=== PATIENT | female | born 1995 | race Caucasian/White ===

== ENCOUNTER → 2019-10-17 11:45 | Outpatient (BNVA) | payer OTHER, SELFPAY | PROVIDERS: Family Provider Family Medicine; PCP Family Medicine; Visit Provider Obstetrics & Gynecology | DX: Z34.90 Encounter for supervision of normal pregnancy, unspecified, unspecified trimester (principal) | CPT/HCPCS: 36415; 80307; 84315; 85027; 86592; 86803; 86850; 86900; 87086; 87340; 87491; 87591 ==

== ENCOUNTER → 2019-11-15 10:19 | Outpatient (BNVA) | payer OTHER, SELFPAY | PROVIDERS: Family Provider Family Medicine; PCP Family Medicine; Visit Provider Nurse Practitioner Women's Health | DX: Z01.89 Encounter for other specified special examinations (principal) | CPT/HCPCS: 84315 ==

== ENCOUNTER → 2019-12-13 09:47 | Outpatient (BNVA) | payer OTHER, SELFPAY | PROVIDERS: Family Provider Family Medicine; PCP Family Medicine; Visit Provider Obstetrics & Gynecology | DX: Z36.87 Encounter for antenatal screening for uncertain dates (principal); Z3A.17 17 weeks gestation of pregnancy | CPT/HCPCS: 76805; 76815 ==

== ENCOUNTER → 2020-01-08 13:06 | Outpatient (BNVA) | payer OTHER, SELFPAY | PROVIDERS: Family Provider Family Medicine; PCP Family Medicine; Visit Provider Obstetrics & Gynecology | DX: Z36.89 Encounter for other specified antenatal screening (principal); Z3A.21 21 weeks gestation of pregnancy | CPT/HCPCS: 76805 ==

== ENCOUNTER → 2020-01-10 08:22 | Outpatient (BNVA) | payer OTHER, SELFPAY | PROVIDERS: Family Provider Family Medicine; PCP Family Medicine; Visit Provider Obstetrics & Gynecology | DX: Z46.89 Encounter for fitting and adjustment of other specified devices (principal) | CPT/HCPCS: 84315 ==

== ENCOUNTER → 2020-01-29 12:54 | Outpatient (BNVA) | payer OTHER, SELFPAY | PROVIDERS: Family Provider Family Medicine; PCP Family Medicine; Visit Provider Obstetrics & Gynecology | DX: O09.892 Supervision of other high risk pregnancies, second trimester (principal) | CPT/HCPCS: 84315 ==

== ENCOUNTER → 2020-02-01 12:38 | Outpatient (BNVA) | payer OTHER, SELFPAY | PROVIDERS: Family Provider Family Medicine; PCP Family Medicine; Visit Provider Obstetrics & Gynecology | DX: Z34.82 Encounter for supervision of other normal pregnancy, second trimester (principal) | CPT/HCPCS: 82950; 85027 ==

== ENCOUNTER → 2020-02-26 14:54 | Outpatient (BNVA) | payer OTHER, SELFPAY | PROVIDERS: Family Provider Family Medicine; PCP Family Medicine; Visit Provider Obstetrics & Gynecology | DX: Z34.82 Encounter for supervision of other normal pregnancy, second trimester (principal) | CPT/HCPCS: 82950; 84315; 85027 ==

== ENCOUNTER → 2020-04-23 09:44 | Outpatient (BNVA) | payer OTHER, SELFPAY | PROVIDERS: Family Provider Family Medicine; PCP Family Medicine; Visit Provider Obstetrics & Gynecology | DX: O35.1XX0 Maternal care for (suspected) chromosomal abnormality in fetus, not applicable or unspecified (principal); Z3A.36 36 weeks gestation of pregnancy | CPT/HCPCS: 84315; 87081 ==

== ENCOUNTER 2020-05-15 05:13 | Inpatient (IN) | payer OTHER, SELFPAY ==
[2020-05-15] VITALS (55 sets, daily range): BP systolic 0–140; BP diastolic 0–95; PULSE 76–107; RESP 16–18; TEMP 36.5–37.3; O2SAT 97–99; BMI 24.6
[2020-05-15 05:59] LABS: Basophils # 0.1 10^3/uL (0.0-0.1); Basophils % 0.5 %; Eosinophils # 0.2 10^3/uL (0.0-0.8); Eosinophils % 1.4 %; Hematocrit 34.9 % (37.0-47.0); Lymphocytes # 2.5 10^3/uL (0.8-4.8); Lymphocytes % 17.8 %; Mean Corpuscular HGB Conc 31.5 g/dL (30.0-36.0); Mean Corpuscular Hemoglobin 27.4 pg (28.0-34.0); Monocytes # 0.9 10^3/uL (0.2-0.9); Monocytes % 6.1 %; Neutrophils # 10.36 10^3/uL (1.8-7.7); Neutrophils % 73.5 %; Nucleated Red Blood Cells % 0 %; Platelet Count 195 10^3/cmm (130-400); Red Blood Count 4.01 10^6/uL (4.1-5.3); Red Cell Distribution Width 13.8 % (12.1-15.1); White Blood Count 14.1 10^3/uL (4.0-10.0)
[2020-05-15] MEDS: dextrose 5%-lactated ringers 1,000 ML 125 ML IV (06:45)
--- NOTE | 2020-05-15 06:47 | ANES.PREANE2 ---
Pre-Anesthetic Assessment Pre-Anesthetic Assessment: Height/Weight: Height 1.65 m Weight 67.132 kg Pulse BP Pulse Ox 104 H 124/65 98 05/15/20 06:45 05/15/20 06:45 05/15/20 06:41 Preop Diagnosis: IUP Proposed Procedure: Lumbar Labor Epidural Was Beta Wade taken within 24 hours: N/A Last intake: 2200 Social: Social History: No alcohol and No tobacco Exam: Pre-Anes Outpt Exam: alert, oriented x 3, clear to auscultation bilaterally and regular rate & rhythm Airway: Submandibular: WNL Cervical ROM: WNL MP: 1 Dentition: Full History/ROS: No significant history except as noted and No significant complaints Pulmonary: Pulmonary: None reported CV/HEM: CV/HEM: None reported : : None reported Hepatic: Hepatic: None reported GI: GI: None reported Metabolic: Metabolic: None reported Musc/skel: Musc/skel: None reported Neuropsych: Neuropsych: None reported Anesthetic Plan: ASA status: 2 Anesthesia: Regional (specify below) (epidural) PFSH Anesthesia PFSH: Medical History No pertinent past medical history Denies diabetes, asthma, hypertension, seizures, DVT/PE. Surgical History No history of previous surgery Family History Family/Other Breast cancer maternal aunt maternal great aunt Hypertension maternal aunt, maternal uncle x4 Diabetes maternal grandfather paternal grandmother Mother Hypertension Grandmother Congestive heart failure maternal Social History Smoking and tobacco status: never smoked Alcohol intake: never Data Anesthesia CBC & Chem 7: 05/15/20 05:25 Other Labs: Laboratory Results - last 48 hr 05/15/20 05:25 WBC 14.1 H RBC 4.01 L Hgb 11.0 L Hct 34.9 L MCV 87.0 MCH 27.4 L MCHC 31.5 RDW 13.8 Plt Count 195 MPV 12.0 H Neut % (Auto) 73.5 Lymph % (Auto) 17.8 Lucas % (Auto) 6.1 Eos % (Auto) 1.4 Baso % (Auto) 0.5 Neut # (Auto) 10.36 H Lymph # (Auto) 2.5 Lucas # (Auto) 0.9 Eos # (Auto) 0.2 Baso # (Auto) 0.1 Nucleated RBC % (auto) 0 Nucleated RBCs # 0.0 Cardiac Studies: No Data to Display Anesthesia Procedures Epidural: Time Out Performed: Yes Consents Signed: Procedure Consent Consent: from patient, risks and benefits reviewed and patient agrees to proceed Lumbar Level: L3-L4 Epidural position: sitting Epidural procedure: sterile prep of area, 1% lidocaine to numb the area (5), 18 g needle, negative for paresthesia passed, neg for paresthesia, test dose given, 1.5% xylocaine 1:200k epi (5), 0.2% Ropivacaine bolus ml (5), placed PCEA (5cc q10min x 3), no systemic response, sterile dressing applied, L.U.D. no apparent complications and 0.2% Ropiavacaine @ mls/hr (12) Additional Comments: Called to OB for epidural placement, pt evaluated and assessed for placement and explained procedure. Labs reviewed. Pt agrees to proceed. placed to 5cm in space and tolerated well. Bolused with epidural pump and VSS throughout per nursing chart. Last BP 112/68. Pain much improved.
--- NOTE | 2020-05-15 08:34 | P.HP_ITS ---
Providers/Chief Complaint Admitting Physician: Chet Cervantes MD Primary Care Provider: Davide Zamudio Chief Complaint: Contractions History of Present Illness Margot Davis is a 24 year old female 2, para 1-0-0-1 with an LMP of 07/24/2019 and an EDC of 05/18/2020 based on a 17-week ultrasound, which places her at 39-4/7 weeks gestation today. She presented to L&D during the night with complaint of contractions. She was found to be edgar regularly. Cervix was 60% effaced and 5 cm dilated. She had epidural placed. At approximately 08:30, cervix was 6 to 7 cm dilated and 90% effaced with bulging membranes. Artificial rupture membranes was performed with clear fluid and the cervix shrunk to 4 cm dilation. Patient reports being very comfortable at this time with epidural. She denies any complaints. OB Labs 10/18/2019 Blood type: O positive Antibody screen: Negative CBC: 11.2<13.5/40.6>251 Rubella : Immune Hepatitis B surface antigen: Non-reactive Hepatitis C antibody: Non-reactive RPR: Nonreactive HIV: Non-reactive Drug screen: Negative Urine culture: 10,000-20,000 COLS/ML mixed superficical oskar CF: Declined Panorama: Low risk for trisomy and monosomy X; male fetus 10/18/2019 Pap smear: 05/31/2018: NILM Gonorrhea: Negative Chlamydia: Negative 11/15/2019 AFP: Declined. 02/26/2020 28 week CBC: WBC 15.2 Hgb 11.0 Hct 33.8 MCV 94.9 Platelet 232 GCT: 81 04/23/20 GBS: Negative OB Ultrasound LMP 07/24/2019 AELX by LMP 04/29/2020. Use first ultrasound for dating. 1. 12/13/2019 ---> 17-4 WG ---> EDC 05/18/2020. EFW 7 oz (190 g). Performed at [facility]. 19-day difference. Use this ultrasound for dating. 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 Review of Systems Const: Denies: fever(s) or chills Eyes: Denies: change in vision ENMT: Denies: throat pain or nasal congestion Card: Denies: chest pain, palpitations or lightheadedness Resp: Denies: dyspnea, productive cough, non-productive cough or wheezing GI: Denies: abdominal pain (Other than with contractions), nausea or vomiting : Reports: vaginal discharge; Denies: dysuria or vaginal bleeding Musc: Reports: back pain Neuro: Denies: headache(s) or dizziness Psych: Denies: anxiety or depression Endo: Denies: hot flashes Medications/Allergies Home Medications Medication Instructions Recorded Confirmed Last Taken Type PNV 153-FA 400 mcg-om3 35 mg-dha See Rx Instructions .ROUTE 10/17/19 05/15/20 05/14/20 19:00 History 25 mg-epa 5 mg-fish oil chew tablet .COMPLEX tab Allergies Allergy/AdvReac Type Severity Reaction Status Date / Time No Known Allergies Allergy Verified 05/13/20 08:18 PFSH Acute PFSH: Medical History No pertinent past medical history Denies diabetes, asthma, hypertension, seizures, DVT/PE. Surgical History No history of previous surgery Family History Family/Other Breast cancer maternal aunt maternal great aunt Hypertension maternal aunt, maternal uncle x4 Diabetes maternal grandfather paternal grandmother Mother Hypertension Grandmother Congestive heart failure maternal Social History Smoking and tobacco status: never smoked Alcohol intake: never Substance/Drug Use: never Vitals/I&O/Wt Last Vital Signs Temp 98.1 F 05/15/20 08:20 Pulse 76 05/15/20 08:14 Resp 18 05/15/20 08:20 BP 125/77 05/15/20 08:14 Pulse Ox 97 05/15/20 06:56 Weight last 48 hrs Weight 148 lb Physical Exam Const: COMMON NORMALS: no acute distress, average body habitus, alert and well nourished GENERAL APPEARANCE: well developed ORIENTATION/CONSCIOUSNESS: Yes oriented to person, Yes oriented to place and Yes oriented to time Resp: COMMON NORMALS: clear to auscultation bilaterally EFFORT & INSPECTION: Yes symmetric chest movement Cardio: COMMON NORMALS: regular rate, regular rhythm, No gallops present (Cardio), No clicks present (Cardio) and No rub (Cardio) GI: COMMON NORMALS: Soft to palpation, non-tender, No hepatosplenomegaly present and no masses (Except for gravid uterus) INSPECTION: Yes gravid abdomen AUSCULTATION: Yes normoactive bowel sounds PALPATION: Yes Soft to palpation, Yes No hepatosplenomegaly present and No Hernia present : EXTERNAL FEMALE EXAM: No Hernia present OTHER: External genitalia: Normal in appearance with no lesions seen. Anus/perineum: No perineal lesions noted. Urethral meatus: Normal in size and location with no lesions or prolapse noted Urethra: Nontender with no palpable masses noted. Bladder: Nontender with no palpable masses noted. Vagina: No palpable masses noted. Cervix: 90% effaced, 6 to 7 cm dilated, -2 station with bulging membranes. Artificial rupture membranes performed with clear fluid. Cervix 4 cm dilated afterwards. Uterus: Nontender gravid. Adnexa: Not palpable. Extremity: COMMON NORMALS: no calf tenderness NARRATIVE EXTREMITY EXAM: Trace lower extremity edema bilaterally Neuro: SENSORIUM/ORIENTATION: Yes alert, Yes oriented to person, Yes oriented to place and Yes oriented to time Psych: COMMON NORMALS: normal affect MOOD & AFFECT: Yes euthymic mood Urinary Catheter Management^: Reed: Cath Placed During This Visit: yes Urinary Catheter Date of Insertion: 05/15/20 Urinary Catheter Time of Insertion: 07:00 Data : 05/15/20 05:25 A&P Assessment and plan (1) Supervision of normal : 2, para 1-0-0-1 at 39-4/7 weeks gestation in labor. AROM performed with clear fluid. Expect vaginal delivery. Continue present management. 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
--- NOTE | 2020-05-15 10:30 | PC.NURSE ---
D5LR and Ropivacaine not administered by person who scanned medications.
[2020-05-15] MEDS: oxytocin 30 UNIT/500 ML BAG 600 UNIT IV (11:50)
--- NOTE | 2020-05-15 12:02 | PM.DELIVERY ---
Delivery Note: Date of delivery: May 15, 2020 Pre-delivery diagnoses: at 39-4/7 weeks gestation Post-delivery diagnoses: 1. Term vaginal delivery at 39-4/7 weeks gestation 2. Light meconium stained fluid. 3. Viable male . Procedure: Spontaneous vaginal delivery Op report anesthesia: Epidural Delivering Physician: Chet Cervantes MD Estimated blood loss (mL): 100 Pre-Delivery Course: Patient is a 24-year-old white female 2, para 1-0-0-1 with an LMP of 07/24/2019 and an EDC of 05/18/2020 based on a 17-week ultrasound, which places her at 39-4/7 weeks gestation. She presented to labor and delivery at 04:55 on 05/15/2020 complaining of contractions. She was found to be edgar every 2 to 3 minutes and was 60% effaced and 4 to 5 cm dilated. She continued to make cervical change. She received an epidural. At 08:20 she was 6-7 cm dilated with bulging membranes. Artificial rupture membranes was performed with clear fluid noted. Cervix strength to 4 cm dilation afterwards. She continued to progress and was found to be completely dilated at 11:16. heart rate tracing was reassuring during the labor course. Delivery: Patient started pushing at 11:27 and delivered at 11:49 as a spontaneous vaginal delivery of an occiput anterior male infant over an intact perineum under epidural anesthesia. Following delivery of the 's head, one loop of nuchal cord was noted and reduced. The rest the delivered atraumatically with the right shoulder anterior. Slight greenish tint of the fluid was noted after delivery. was placed on the mother's abdomen where it was left in the care of the waiting nurses. It was spontaneously crying. Cord was clamped. Cord was cut by the reported father the baby. Cord blood was obtained. Pitocin bolus was started. Placenta delivered intact by simple expression at 11:52. The cervix and vagina were palpated and noted to be intact. The labia were inspected and noted to be intact except for superficial abrasions which required no repair. FINDINGS 1. Viable male weighing 7 lbs 8 oz (3410 g) with a length of 21 inches and Apgars of 8 at 1 minute and 9 at 5 minutes. 2. Three-vessel cord with one loop of nuchal cord noted. 3. Normal-appearing placenta with a central cord insertion. 4. Slight greenish tint to the fluid was noted at delivery. This is consistent with light meconium fluid. Post-Delivery Status: Mother and were left to recover in satisfactory condition. A&P Assessment and plan (1) Normal delivery at term: Status: Acute Coding Level of Care Code Acute Sales Attendant Building [employer] for Rivka Hernández Diagnoses Normal delivery at term O80
[2020-05-15] MEDS: benzocaine-menthol 78 gm Canister 1 SPRAY TOPICAL (14:38)
--- NOTE | 2020-05-15 15:59 | PC.NURSE ---
Attempted to get patient up to bathroom at this time, right leg was too numb to support patient, she was placed back in bed at this time
--- NOTE | 2020-05-15 16:38 | PC.NURSE ---
Patient ambulated in [place] to PP room at this time, no c/o nausea, vomiting, or lightheadedness
[2020-05-15] MEDS: docusate sodium 100 mg Capsule PO (17:32)
[2020-05-16 01:30] VITALS: BP 122/82; PULSE 75; RESP 16; TEMP 36.6; O2SAT 98
[2020-05-16 05:45] VITALS: BP 130/79; PULSE 79; RESP 16
[2020-05-16 07:06] LABS: Hematocrit 38.2 % (37.0-47.0); Hemoglobin 11.6 g/dL (11.5-15.3); Mean Corpuscular HGB Conc 30.4 g/dL (30.0-36.0); Mean Platelet Volume 10.8 fL (7.4-10.4); Platelet Count 250 10^3/cmm (130-400); Red Blood Count 4.29 10^6/uL (4.1-5.3); White Blood Count 18.2 10^3/uL (4.0-10.0)
--- NOTE | 2020-05-16 08:09 | PM.OBGYDC ---
Discharge Providers [employer] Date of Admission: 05/15/20 05:13 Date of Discharge: 05/16/20 Attending Provider at Admission: Chet Cervantes MD Attending Provider at Discharge: Chet Cervantes MD Primary Care Provider: Davide Zamudio Diagnoses at Discharge Discharge Diagnosis (1) Normal delivery at term: Status: Acute Reason for Visit Reason for Visit: Contractions Hospital Course Discharge Summary: Patient is a 24-year-old female 2, para 1-0-0-1 with an LMP of 07/24/2019 and an EDC of 05/18/2020 based on a 17-week ultrasound, which placed her at 39-4/7 weeks gestation. She presented to labor and delivery on 05/15/2020 at 04:55 with complaint of contractions. She was 5 cm dilated and 60% effaced and was edgar regularly. She was admitted to L&D and had an epidural placed. At 08:20 she was 6 to 7 cm dilated and had artificial rupture membranes performed with clear fluid present. She progressed to complete dilation by 11:16. tracing was reassuring during the labor course. She started pushing at 11:27 and delivered at 11:49 as a spontaneous vaginal delivery of an occiput anterior male infant over an intact perineum under epidural anesthesia. The baby weighed 7 lbs 8 oz (3410 g) with a length of 21 inches and Apgars of 8 at 1 minute and 9 at 5 minutes. Patient had superficial abrasions which required no repair. Mother and did well following delivery. Day 1 Patient was without complaints. She reported tolerating a regular diet without nausea or vomiting. Reports pain was well controlled. Denied lightheadedness or dizziness with ambulation. Denied shortness of breath or chest pains. Denied problems with urination. Reported bleeding was slowing. She was requesting to go home. Physical Exam: See below. Plan Discharge to home. Discharge instructions discussed with patient. Patient to follow-up in the office with Dr. Carter in approximately 6 weeks. She was instructed to continue vitamins and to use [id number] ibuprofen as needed for pain. Information Peripartum Data: Infant Delivery Method: Vaginal Physical Exam Const: COMMON NORMALS: no acute distress, average body habitus, alert and well nourished GENERAL APPEARANCE: well developed ORIENTATION/CONSCIOUSNESS: Yes oriented to person, Yes oriented to place and Yes oriented to time GI: COMMON NORMALS: Soft to palpation, non-tender, No hepatosplenomegaly present and no masses (except for nontender uterus, 2 fingerbreaths below umbilicus) AUSCULTATION: Yes normoactive bowel sounds PALPATION: Yes Soft to palpation, Yes No hepatosplenomegaly present and No Hernia present : EXTERNAL FEMALE EXAM: No Hernia present Extremity: COMMON NORMALS: no calf tenderness NARRATIVE EXTREMITY EXAM: Trace lower extremity edema bilaterally Neuro: SENSORIUM/ORIENTATION: Yes alert, Yes oriented to person, Yes oriented to place and Yes oriented to time Psych: COMMON NORMALS: normal affect MOOD & AFFECT: Yes euthymic mood Urinary Catheter Management^: Reed: Cath Placed During This Visit: yes, but has since been removed by the nurse Reason for Continuing Indwelling Catheter: Decision to DC Catheter Urinary Catheter Date of Insertion: 05/15/20 Urinary Catheter Time of Insertion: 07:00 Date Urinary Catheter Removed: 05/15/20 Time Urinary Catheter Discontinued: 11:27 Discharge Data Data Completed and Pending: Labs from last 24 hours 05/16/20 06:45 WBC 18.2 H RBC 4.29 Hgb 11.6 Hct 38.2 MCV 89.0 MCH 27.0 L MCHC 30.4 RDW 14.0 Plt Count 250 MPV 10.8 H Vitals: Last Vital Signs Temp 97.8 F 05/16/20 01:30 Pulse 79 05/16/20 05:45 Resp 16 05/16/20 05:45 BP 130/79 05/16/20 05:45 Pulse Ox 98 05/16/20 01:30 Discharge Plan Discharge Patient Disposition: Home Condition: Stable Prescriptions: Continued Gummies 400 mcg-35 mg- 25 mg-5 mg tablet,chewable See Rx Instructions .ROUTE .COMPLEX RF: 0 Discharge Orders: Discharge Order (Routine); Ordered 05/16/20 Ordered By: Chet Cervantes Referrals: Harpreet Carter MD [Physician] - 07/01/20 10:30 am (* Your [address] week appointment is with Dr. Carter on 07/01/2020 at 10:30am. ) Discharge Diet: Regular Discharge Activity: Limit activity as instructed Patient Instructions: Your Baby (GEN), Expression, Collection and Storage of Breastmilk (GEN), How to Hold and Breastfeed Your Baby (GEN), and Nipple Soreness (GEN), Breast Fullness Versus Breast Engorgement (GEN), and Plugged Ducts (GEN), How to Increase Your Milk Supply (GEN), and Your Diet (GEN), Breast Care for the Breast Feeding Mother (GEN), OB Discharge Report, OB Food/Drug Interaction Guide, OB Vaginal Deliveries - [facility] Activity Restrictions/Additional Instructions: May use [id number] ibuprofen 200 mg, 3 tablets four times a day or 4 tablets three times a day, as needed for pain. Discharge Date/Time: 05/16/20 15:20 Discharge Attestations [employer] Time Spent in Discharge Care*: less than 30 min Coding Level of Care Code Acute Field Software Engineer for Chg Fwd Exam Expanded Problem Focused Diagnoses Normal delivery at term O80
[2020-05-16] MEDS: docusate sodium 100 mg Capsule PO (09:21)
[2020-05-16] MEDS: prenatal vitamin Capsule 1 CAP PO (09:21)
[2020-05-16 09:24] VITALS: BP 108/72; PULSE 97; RESP 18; TEMP 37.1
[2020-05-16 15:10] VITALS: BP 122/82; PULSE 86; RESP 18; TEMP 36.8
== END 2020-05-16 15:20 | disposition home or self-care (01) | DRG 807 ==
LOC: OBGYN 08:21 → OPOB 05-16 08:30
PROVIDERS: Admitting Provider Obstetrics & Gynecology; Family Provider Family Medicine; PCP Family Medicine; Visit Provider Obstetrics & Gynecology
DX: O69.81X0 Labor and delivery complicated by cord around neck, without compression, not applicable or unspecified (principal); Z37.0 Single live birth; Z3A.39 39 weeks gestation of pregnancy; O77.0 Labor and delivery complicated by meconium in amniotic fluid
CPT/HCPCS: 12345; 36415; 51702; 59025; 59409; 85025; 85027; 99211; J2795